=== PATIENT | male | born 1965 | race Hispanic/Latino ===

== ENCOUNTER 2019-01-24 08:34 | Day surgery (SDC) | payer BC ==
[2019-01-23 13:33] VITALS: BMI 23.9
[2019-01-24 09:10] VITALS: RESP 18; O2SAT 100
[2019-01-24] MEDS ORDERED: Propofol 10 mg/ml Inj (20 ML) ONE (09:24)
[2019-01-24] MEDS ORDERED: Midazolam 2 MG/2 ML VIAL ONE (09:24)
[2019-01-24] MEDS ORDERED: Lactated Ringer's 500 ML IV ONE (09:26)
[2019-01-24] MEDS ORDERED: Simethicone 40 mg/0.6 ml Liquid (30 ml) ONE (09:37)
[2019-01-24] MEDS ORDERED: Simethicone 40 mg/0.6 ml Liquid (30 ml) PO SCH (10:00)
[2019-01-24 10:40] VITALS: TEMP 98
[2019-01-24 10:47] VITALS: BP 111/59; PULSE 89
== END 2019-01-24 11:13 | disposition home or self-care (01) ==
LOC: C.ENDO 08:34
PROVIDERS: ATTEND Internal Medicine Gastroenterology
DX: Z12.11 Encounter for screening for malignant neoplasm of colon (principal); K64.1 Second degree hemorrhoids
CPT/HCPCS: G0121; J2001; J2250; J2704; J7120